=== PATIENT | female | born 1975 | race Caucasian/White ===

== ENCOUNTER 2016-12-21 09:38 | Emergency (ER) | payer BC ==
[~2016-12-21] VITALS: Ht 165.1 cm; Wt 69.9 kg
[~2016-12-21 09:38] MED LIST: ATIVAN0.5 MG PO; AUGMENTIN875 MG PO; BACTRIM,SEPT1 TABLET PO; CELEBREX100 MG PO; CIPRO HC OTIC S10 ML RIGHT EAR; CLARITIN10 MG PO; CLINDAMYCIN HC300 MG PO; DONNATAL1 TABLET PO; ESCITALOPRAM OXA5 MG PO; FLEXERIL10 MG PO; IBUPROFEN800 MG PO; KLONOPIN0.5 M1 PO; LEXAPRO10 MG PO; LEXAPRO5 MG PO; MEDROXYPROGESTER5 MG PO; MIRALAX255 GM PO; MOTRIN800 MG PO; NAPROSYN500 MG PO; NICODERM CQ1 EAC2 TD; NORCO 5/3251 TABLET PO; OMEPRAZOLE40 M1 PO; STIOLTO RESPIMAT4 GM IH; ULTRAM50 MG PO; VICODIN,LORT1 TABLET PO; ZANTAC150 MG PO; ZOFRAN ODT8 MG PO
[2016-12-21 10:54] LABS: ADD MIUA? YES; BILIRUBIN NEGATIVE; BLOOD SMALL; COLOR YELLOW ((YELLOW)); GLUCOSE (STRIP) NEGATIVE; KETONES NEGATIVE; LEUKOCYTES NEGATIVE; NITRITE NEGATIVE; PROTEIN (STRIP) NEGATIVE; SPECIFIC GRAVITY 1.006 (1.000-1.030); UROBILINOGEN 0.2 MG/DL (0.2-1.0)
[2016-12-21 10:58] LABS: BACTERIA NONE SEEN /HPF; EPITHELIAL CELLS 1+ /HPF; MUCUS TRACE /LPF; RED BLOOD CELLS 0-5 /HPF (0-5); WHITE BLOOD CELLS 0-5 /HPF (0-5)
[2016-12-21 11:03] LABS: HEMATOCRIT 42.6 % (36.0-46.0); MCH 31.5 PG (29.0-34.0); MCHC 35.2 G/DL (30.0-36.0); MCV 89.5 FL (83-99); MEAN PLAT.VOLUME 10.7 uM^3 (9.5-12.4); PLATELET COUNT 244 K/uL (156-360); RBC DIS.WIDTH-CV 12.1 % (11.8-14.6); RBC DIS.WIDTH-SD 38.6 % (39-53); RED BLOOD COUNT 4.76 M/uL (3.80-5.20); WHITE BLOOD COUNT 7.7 K/uL (4.1-10.2)
[2016-12-21 11:05] LABS: AMPHETAMINE NEGATIVE (500 ng/mL); BARBITURATES NEGATIVE (200 ng/mL); BENZODIAZEPINES NEGATIVE (150 ng/mL); COCAINE NEGATIVE (150 ng/mL); INTERNAL CONTROLS VALID? YES; METHADONE NEGATIVE (200 ng/mL); METHAMPHETAMINE NEGATIVE (500 ng/mL); OPIATES (MORPHINE) NEGATIVE (100 ng/mL); OXYCODONE NEGATIVE (100 ng/mL); PHENCYCLIDINE NEGATIVE (25 ng/mL); PROPOXYPHENE NEGATIVE (300 ng/mL); THC CANNABINOIDS NEGATIVE (50 ng/mL); TRICYCLIC ANTIDEPRESSANTS NEGATIVE (300 ng/mL)
[2016-12-21 11:18] LABS: CHLORIDE 107 mEq/L (99-109); POTASSIUM 4.1 mEq/L (3.7-5.4); SODIUM 142 mEq/L (136-147)
[2016-12-21 11:19] LABS: GLUCOSE 83 mg/dL (70-99)
[2016-12-21 11:21] LABS: ANION GAP 9 MEQ/L (2-14)
[2016-12-21 11:23] LABS: GFR ESTIMATE (CALCULATED) > 59 mL/min/
[2016-12-21 11:24] LABS: UREA NITROGEN (BUN) 9 mg/dL (9-23)
[2016-12-21] MEDS ORDERED: TORADOL10 MG PO (12:44)
[2016-12-21] MEDS ORDERED: FLEXERIL10 MG PO (12:44)
[2016-12-21 13:11] VITALS: BP 105/69
== END 2016-12-21 13:12 | disposition home or self-care (01) ==
LOC: EME 09:38
PROVIDERS: Emergency Medicine
DX: G57.93 Unspecified mononeuropathy of bilateral lower limbs (principal); G56.93 Unspecified mononeuropathy of bilateral upper limbs; R51 Headache; G89.29 Other chronic pain; F17.200 Nicotine dependence, unspecified, uncomplicated
CPT/HCPCS: 70450; 80048; 81003; 85027; 99281; 99284

== ENCOUNTER 2017-03-12 16:07 | Emergency (ER) | payer BC ==
[~2017-03-12] VITALS: Ht 165.1 cm; Wt 72.1 kg
[~2017-03-12 16:07] MED LIST changes: +TORADOL10 MG PO
[2017-03-12] MEDS ORDERED: PREDNISONE20 MG PO (17:13)
[2017-03-12] MEDS ORDERED: FLEXERIL10 MG PO (17:13)
[2017-03-12] MEDS ORDERED: LIDODERM 5% P1 PATCH TD (17:13)
[2017-03-12 17:29] VITALS: BP 125/76
== END 2017-03-12 17:29 | disposition home or self-care (01) ==
LOC: EME 16:07
DX: M54.12 Radiculopathy, cervical region (principal); F17.200 Nicotine dependence, unspecified, uncomplicated
CPT/HCPCS: 99281; 99283

== ENCOUNTER 2017-06-24 12:38 | Emergency (ER) | payer BC ==
[~2017-06-24] VITALS: Ht 165.1 cm; Wt 71.9 kg
[~2017-06-24 12:38] MED LIST changes: +LIDODERM 5% P1 PATCH TD; +PREDNISONE20 MG PO
[2017-06-24 13:54] LABS: HEMATOCRIT 41.9 % (36.0-46.0); MCH 32.1 PG (29.0-34.0); MCHC 34.1 G/DL (30.0-36.0); MCV 93.9 FL (83-99); MEAN PLAT.VOLUME 9.7 uM^3 (9.5-12.4); PLATELET COUNT 273 K/uL (156-360); RBC DIS.WIDTH-CV 11.4 % (11.8-14.6); RED BLOOD COUNT 4.46 M/uL (3.80-5.20); WHITE BLOOD COUNT 7.4 K/uL (4.1-10.2)
[2017-06-24 14:03] LABS: CHLORIDE 106 mEq/L (99-109); POTASSIUM 4.2 mEq/L (3.7-5.4); SODIUM 141 mEq/L (136-147)
[2017-06-24 14:05] LABS: GLUCOSE 91 mg/dL (70-99)
[2017-06-24 14:06] LABS: ANION GAP 9 MEQ/L (2-14)
[2017-06-24 14:09] LABS: GFR ESTIMATE (CALCULATED) > 59 mL/min/; UREA NITROGEN (BUN) 5 mg/dL (9-23)
[2017-06-24 14:18] LABS: TROP-I INTERPRETATION NEGATIVE; TROPONIN-I < 0.01 ng/mL (0.0-0.30)
[2017-06-24] MEDS ORDERED: NEURONTIN100 MG PO (14:35)
[2017-06-24 16:06] LABS: TROP-I INTERPRETATION NEGATIVE; TROPONIN-I < 0.01 ng/mL (0.0-0.30)
[2017-06-24 16:56] VITALS: BP 131/83
== END 2017-06-24 16:57 | disposition home or self-care (01) ==
LOC: EME 12:38
PROVIDERS: Nurse Practitioner Family
DX: R07.89 Other chest pain (principal); K04.7 Periapical abscess without sinus; F17.200 Nicotine dependence, unspecified, uncomplicated
CPT/HCPCS: 71020; 80048; 84484; 85027; 93005